=== PATIENT | female | born 1945 | race Caucasian/White ===

== ENCOUNTER 2019-01-03 01:47 | Inpatient (IN) ==
[2019-01-05 08:23] VITALS: BP 144/49
== END 2019-01-05 09:37 | disposition home or self-care (01) | DRG 310 ==
LOC: SUPCPDRO → ED 01:47 → ICU 05:42 → SUATTDRO 05:42 → 2N 01-04 03:57
PROVIDERS: ATTEND Internal Medicine

== ENCOUNTER 2019-03-26 12:46 | Observation (INO) ==
--- NOTE | 2019-03-26 13:44 | Diag Imaging Result Doc PS360 ---
CHEST-1 VIEW - 03/26/2019 INDICATION: cp COMPARISON: 01/03/2019 FINDINGS: There are some faint interstitial markings in the lung bases bilaterally suggesting some combination of pulmonary edema, fibrosis or bronchitis. Heart size is borderline enlarged. Stable sternotomy wires. No pneumothorax or pleural effusion. IMPRESSION: Nonspecific findings. Electronically signed by Camden Villarreal 03/26/2019 1:41 PM
[2019-03-26 13:58] LABS: BASO# 0.03 X1000 (0.0-0.2); BASO% 0.6 % (0.0-0.8); EOS# 0.28 X1000 (0.0-0.7); EOS% 5.5 % (0.0-10.0); HEMATOCRIT 34.9 % (37.0-47.0); HEMOGLOBIN 11.1 g/dL (12.0-16.0); LYMPH# 1.33 X1000 (1.2-3.4); LYMPH% 26.1 % (20.5-51.1); MCH 28.7 PG (27-31); MCHC 31.8 g/dL (33-37); MCV 90.2 FL (81-99); MONO# 0.85 X1000 (0.11-0.59); MONO% 16.7 % (1.7-9.3); MPV 10.1 FL (7.4-10.4); NEUT# 2.61 X1000 (1.4-6.5); NEUT% 51.1 % (42.2-75.2); PLT 305 X1000 (130-400); RBC 3.87 XMIL (4.2-5.4); RDW 13.5 % (11.5-14.5)
[2019-03-26 14:07] LABS: INR 1.09; PROTIME 14.2 Seconds (11.0-16.0); PTT 30.7 Seconds (22.3-41.8)
--- NOTE | 2019-03-26 14:11 | EKG Report ---
Test Performed on : 03/26/2019 12:52:18 PM Test Reason : cp Blood Pressure : / mmHG Vent. Rate : 061 BPM Atrial Rate : 061 BPM P-R Int : 138 ms QRS Dur : 078 ms QT Int : 446 ms P-R-T Axes : 055 050 086 degrees QTc Int : 448 ms Normal sinus rhythm. Minimal voltage criteria for LVH, may be normal variant Nonspecific T wave abnormality Abnormal ECG When compared with ECG of 05-JAN-2019 07:33, ST elevation now present in Inferior leads T wave inversion more evident in Lateral leads Unconfirmed Result
[2019-03-26 14:24] LABS: AGAP 13; ALKALINE PHOSPHATASE 67 U/L (32-104); BUN 23 mg/dL (8-22); CALCIUM 9.2 mg/dL (8.8-10.2); CHLORIDE 102 mmol/L (98-107); COSMO 281; CREATININE 0.6 mg/dL (0.5-0.9); ESTIMATED GFR > 60; GLUCOSE 92 mg/dL (70-104); GOT 24 U/L (10-30); GPT 21 U/L (10-36); POTASSIUM 3.9 mmol/L (3.5-5.1); SODIUM 139 mmol/L (136-145); TCO2 24 mmol/L (25-35); TOTAL BILIRUBIN 0.27 mg/dL (0.20-1.00)
[2019-03-26] MEDS ORDERED: NITROGLYCERIN TOP ONE (15:20)
--- NOTE | 2019-03-26 15:22 | PROVIDER DOCUMENTATION ---
This chart was entered by Jasmina Palencia Scribe, acting as scribe for Benedicto Nguyen MD. HPI-Chest Pain - General Chief Complaint: Chest Pain Stated Complaint: chest pain Time Seen by Provider: 03/26/19 13:20 Source: patient Allergies/Adverse Reactions: Patient Allergies Allergy/AdvReac Type Severity Reaction Status Date / Time codeine [Codeine] Allergy RASH Verified 01/03/19 03:00 epinephrine Allergy Unknown Verified 01/03/19 03:00 Penicillins Allergy RASH Verified 01/03/19 03:00 rofecoxib [From Vioxx] Allergy RASH Verified 01/03/19 03:00 [id number] Reductase Allergy DIZZINESS Verified 01/03/19 03:01 Inhibitor Home Medications: Home Medication List Medication Instructions Recorded Confirmed Last Taken Type Acetaminophen [Tylenol Extra 500 - 1,000 mg PO Q8H PRN PRN 05/20/15 01/03/19 09/26/17 08:00 History Strength] Apixaban [Eliquis] 5 mg PO BID 05/20/15 01/03/19 09/26/17 08:00 History Aspirin [Aspirin EC] 81 mg PO DAILY 05/20/15 01/03/19 09/26/17 08:00 History Biotin [Hard Nails] 5,000 mcg PO DAILY 09/29/17 01/03/19 09/26/17 08:00 History Ketoprofen, Micronized [Ketoprofen 100 gm TOP 4XDAY 09/29/17 01/03/19 09/26/17 08:00 History Micronized] Sotalol [Betapace] 80 mg PO BID@0500,1700 #60 tab 01/05/19 Unknown Rx - History of Present Illness-CP Nature of Presenting Problem: 74yof presents to ED by EMS cc cp that radiates across shoulders, tightness down right arm, neck, increased weight gain, blurry vision, fatigue and SOB that is worse with exertion, intermittently since Tuesday. Pt reports she took a Nitro and 325mg aspirin and got relief. Pt reports she was seen in 12/[address] Tomlinson did a stress test which showed a blockage so he put her on Sodilol and Eliquis. Pt denies N/V/D. Pt is followed by Dr. Lawrence/Program [facility]. Pt has hx of CABG/AFIB/GERD. Location: reports: substernal Chest Pain Radiation: reports: arms (left), neck, shoulders, back Quality of Pain: reports: pressure, tightness Severity in ED: mild Onset/Duration: 4 days ago Timing: still present, intermittent Context/Activities at Onset: reports: light activity Modifying Factors: improves with: other medication (nitro). worse with: exercise, movement Associated Symptoms: reports: back pain, fatigue, shortness of breath, weakness Nitro Today/Relief: no nitro taken today Aspirin Treatment Today: 81 mg x 1, provided at home Prior Chest Pain/Cardiac Workup: reports: angina, cardiac cath, heart attack, stress test Similar Symptoms Previously?: Yes Recently Seen Here or By Another Healthcare Provider: Yes (seen in ED 12/2018) Review of Systems - Adult - REVIEW OF SYSTEMS - ADULT Constitutional: reports: see HPI, fatique, weight gain. denies: chills, fever Eyes: reports: see HPI, blurred vision Ears, Nose, Mouth & Throat: reports: no symptoms reported Cardiovascular: reports: see HPI, chest pain Respiratory: reports: see HPI, shortness of breath. denies: cough Gastrointestinal: reports: see HPI. denies: diarrhea, nausea, vomiting Genitourinary: reports: no symptoms reported Musculoskeletal: reports: no symptoms reported Integumentary: reports: no symptoms reported Neurological: reports: no symptoms reported Psychiatric: reports: no symptoms reported Endocrine: reports: no symptoms reported Hematologic/Lymphatic: reports: no symptoms reported Allergic/Immunologic: reports: no symptoms reported All Other Systems: Reviewed and Negative Past History - Adult - PAST MEDICAL HISTORY-ADULT Review of Records: reports: Old Records Reviewed, Nursing Assessment Review, Medications Reviewed, Social history reviewed & non-contributory. Major Childhood Illnesses: reports: denies history Cardiovascular: reports: HTN, heart valve problem Respiratory: reports: denies history Gastrointestinal: reports: denies history Obstetrical/Gynecological: reports: denies history Genitourinary: reports: denies history Musculoskeletal: reports: denies history Neurological: reports: denies history Endocrine/Immune: reports: denies history Other Conditions: reports: denies history - PRIOR SURGERIES/PROCEDURES Surgical/Procedure History: reports: BTL, hernia repair, other (heart valve) - IMMUNIZATION STATUS Childhood Immunizations: See Nurse Assessment Flu Vaccine: See Nurse Assessment - FAMILY HISTORY Family History: reviewed, not pertinent Physical Exam-General - PHYSICAL EXAM-ADULT Initial Vital Signs Reviewed: Yes - CONSTITUTIONAL General Appearance: appears well, alert, no apparent distress. negative: a nxious, combative - EYES Eyes: PERRL/EOMI, pink conjunctivae. negative: photophobia - HEAD, EARS, NOSE, MOUTH & THROAT HENMT: normocephalic/atraumatic, moist mucous membranes. negative: angioedema - NECK Neck: supple, normal inspection - RESPIRATORY Respiratory: chest non-tender, lungs clear, normal breath sounds. negative: rhonchi, stridor - CARDIOVASCULAR Cardiovascular: normal peripheral pulses, regular rate, rhythm, no edema. negative: bradycardia, tachycardia - GASTROINTESTINAL (ABDOMEN) Abdominal Exam: normal bowel sounds, non tender, soft. negative: rigid, rebound - MUSCULOSKELETAL Back Exam: normal inspection, no CVA tenderness, no vertebral tenderness Extremity: normal inspection, normal capillary refill. negative: deformity - SKIN Integumentary: normal color. negative: diaphoresis, jaundice, rash - PSYCHIATRIC Psych/Mental Status: normal mood/affect, oriented x 3. negative: anxious, disheveled - HEART Score HEART Score: History: Highly Suspicious HEART Score: ECG: Non-Specific Repolarization Disturbance/LBBB/PM HEART Score: Age: > or = 65 Years HEART Score: Risk Factors for Atherosclerotic Disease: > or = 3 Risk Factors or History of Atherosclerotic Disease HEART Score: Troponin: < or = Normal Limit Total HEART Score:: 7 Progress - PLAN OF CARE/RESULTS Progress/Plan/Lab Results: Vital Signs - 8 hr 03/26/19 13:00 03/26/19 14:30 03/26/19 15:17 Temperature 98.1 F Pulse Rate 61 57 L 57 L Respiratory Rate 19 19 22 Blood Pressure 180/68 171/71 181/68 O2 Sat by Pulse Oximetry 98 99 99 Laboratory Results - last 24 hr 03/26/19 03/26/19 03/26/19 13:41 13:41 13:41 WBC 5.10 RBC 3.87 L Hgb 11.1 L Hct 34.9 L MCV 90.2 MCH 28.7 MCHC 31.8 L RDW Std Deviation 13.5 Plt Count 305 MPV 10.1 Immature Gran % (Auto) 0.0 Neut % (Auto) 51.1 Lymph % (Auto) 26.1 Trego % (Auto) 16.7 H Eos % (Auto) 5.5 Baso % (Auto) 0.6 Immature Gran # (Auto) 0.00 Neut # (Auto) 2.61 Lymph # (Auto) 1.33 Trego # (Auto) 0.85 H Eos # (Auto) 0.28 Baso # (Auto) 0.03 PT INR PTT (Actin FS) Sodium 139 Potassium 3.9 Chloride 102 Carbon Dioxide 24 L Anion Gap 13 BUN 23 H Creatinine 0.6 Estimated GFR/1.73 m2 > 60 BUN/Creatinine Ratio 38 Glucose 92 Calculated Osmolality 281 Calcium 9.2 Total Bilirubin 0.27 AST 24 ALT 21 Alkaline Phosphatase 67 Troponin T High Sens [id number]-Y-Swsudnqmpwy Pept 509 H Total Protein 6.0 L Albumin 4.0 Globulin 2.0 Albumin/Globulin Ratio 2.0 03/26/19 03/26/19 13:41 13:41 WBC RBC Hgb Hct MCV MCH MCHC RDW Std Deviation Plt Count MPV Immature Gran % (Auto) Neut % (Auto) Lymph % (Auto) Trego % (Auto) Eos % (Auto) Baso % (Auto) Immature Gran # (Auto) Neut # (Auto) Lymph # (Auto) Trego # (Auto) Eos # (Auto) Baso # (Auto) PT 14.2 INR 1.09 PTT (Actin FS) 30.7 Sodium Potassium Chloride Carbon Dioxide Anion Gap BUN Creatinine Estimated GFR/1.73 m2 BUN/Creatinine Ratio Glucose Calculated Osmolality Calcium Total Bilirubin AST ALT Alkaline Phosphatase Troponin T High Sens 13 Kon-E-Vjvfeiidggs Pept Total Protein Albumin Globulin Albumin/Globulin Ratio Orders Category Date Time Status cxr [CHEST-1 VIEW] [RAD] Stat Exams 03/26/19 13:20 Completed CBC WITH DIFF [HEME] Stat Lab 03/26/19 13:41 Completed COMPREHENSIVE METABOLIC PANEL [CHEM] Stat Lab 03/26/19 13:41 Completed PRO B-NATRIURETIC PEPTIDE Stat Lab 03/26/19 13:41 Completed PROTIME WITH INR [COAG] Stat Lab 03/26/19 13:41 Completed PTT [COAG] Stat Lab 03/26/19 13:41 Completed TROPONIN T HIGH SENSITIVITY Stat Lab 03/26/19 13:41 Completed TROPONIN T HIGH SENSITIVITY Stat Lab 03/26/19 15:25 Ordered Nitroglycerin Med 03/26/19 15:20 Discontinued 1 inch TOP NOW ONE EKG [EKG] Stat Ther 03/26/19 13:20 Draft Result Diagrams: 03/26/19 13:41 03/26/19 13:41 - EKG 1 Time of EKG reading by physician:: 12:52 EKG Read and Signed by:: Benedicto Nguyen EKG Interpretation (*Must complete 3 of following elements*): Abnormal (non specific T wave abnormality) Rate: 61 Rhythm: NSR QRS: LVH FL Interval: normal - XRAY 1 XRAY: Bilateral XRAY Study: Chest Impression: See EMR Report ( IMPRESSION: Nonspecific findings. Electronically signed by Camden Villarreal 03/26/2019 1:41 PM) - CONSULTS/PCP/HOSPITALIST Notification #1 *Consult/PCP/Hospitalist*: Ann/TARUN Time Discussed: 15:19 Consult Disposition: Will see in ED, Admit (Suha) #2 Consult: Dr Chinchilla Time Discussed: 15:26 Consult Disposition: Admit, other (agreed with admit and will consult.) Departure - Departure Date of Disposition Decision: 03/26/19 Time of Disposition Decision: 15:19 DIAGNOSIS: Chest pain, Exertional shortness of breath, CHF exacerbation Disposition: ADMITTED INPATIENT 09 Certified Medical Emergency: Emergent Condition: Stable Additional Instructions: ED Follow Up Instructions: You have been treated by a care provider in the Emergency Department. These instructions are being provided to you so you can have an understanding of how to care for yourself upon discharge. Upon discharge from the Emergency Departmen t, you are responsible for making arrangements for follow-up care by a physician of your choice. Take all prescribed medications as directed. Return to the Emergency Department immediately for any new or worsening symptoms. You may call the Physician Referral phone number at [phone] to obtain a list of Physicians who are taking new patients. Referrals and Follow-Ups: Atilio Del Castillo MD [Primary Care Provider] - - Critical Care Note This patient required my direct & personal management of CC.: No Attestation - Physician/ BREANNE Attestation Patient care was provided by Advanced Practice Provider:: No The physician spent face to face time with patient:: Yes Advanced Practice Provider documentation review:: Supervising physician onsite and consulted in the evaluation and care of this patient. The physician did have a face to face encounter with the patient. This chart was documented by the indicated scribe, (Jasmina Palencia, Esdras) and accurately reflects the services I performed and decisions made by me, Benedicto Nguyen MD, as attested by the provider's signature.
[2019-03-26] MEDS ORDERED: NITROGLYCERIN SL PRN (17:23)
[2019-03-26] MEDS ORDERED: ZOFRAN IV PRN (17:23)
[2019-03-26] MEDS ORDERED: TYLENOL PO PRN (17:23)
[2019-03-26] MEDS ORDERED: LASIX IV ONE (18:29)
[2019-03-26] MEDS ORDERED: MORPHINE IV PRN (18:30)
--- NOTE | 2019-03-26 19:40 | HISTORY AND PHYSICAL ---
PRIMARY CARE PHYSICIAN: Dr. Atilio Del Castillo. CHIEF COMPLAINT: Chest pain radiating across her shoulders, tightness down her left arm and neck, fatigue and shortness of breath that is worse with exertion that has been present on and off for the past week and progressively worsened. HISTORY OF PRESENTING ILLNESS: This is a 74-year-old female who presents to [facility] via EMS with complaints of chest pain that radiated across her shoulders and down her left arm and neck with some blurry vision fatigue and shortness of breath that became worse with exertion. Over the past couple of weeks it has progressively worsened. States that she was in the hospital in December and was diagnosed with atrial fibrillation and started on sotalol and that she feels her symptoms have progressively worsened since beginning the sotalol. She is followed by shirt creaser in [place], Dr. Lawrence. Her workup today showed a blood pressure of 180/68. Her laboratory data showed a troponin T high- sensitivity of 13. ProBNP was 509. She has had a history of a CABG and her heart score is a 7. So, she will be admitted for further evaluation and treatment. PAST MEDICAL HISTORY: Atrial fibrillation, hypertension, hyperlipidemia, and coronary artery disease. PAST SURGICAL HISTORY: Of coronary bypass, hernia repair, and hysterectomy. FAMILY HISTORY: Positive for coronary artery disease in her father. SOCIAL HISTORY: She currently lives with family. Denies any tobacco, alcohol or illicit drug use. ALLERGIES: To codeine, epinephrine, penicillin, Vioxx, and statins. HOME MEDICATIONS: A current list will need to be obtained, reconciled, reviewed and restarted as appropriate. We will place an order for nursing to update and confirm home medications. LABORATORY DATA: Showed a white blood cell count of 5.10, hemoglobin 11.1, hematocrit 34.9, platelets 305,000. PT and INR of 14.2 and 1.09. Sodium 139, potassium 3.9, chloride 102, CO2 of 24, BUN of 23, creatinine 0.6, glucose of 92. Troponin T high-sensitivity was 13. ProBNP of 509. Chest x-ray showed nonspecific findings of a combination of pulmonary edema, fibrosis or bronchitis. EKG showed normal sinus rhythm at 61. REVIEW OF SYSTEMS: She denied any fever, chills. She did have some blurred vision, dizziness, fatigue, shortness of breath that worsened with exertion, chest pain that radiated down her arm and across her shoulders and neck. Denied any abdominal pain, constipation, diarrhea, burning or hurting with urination. PHYSICAL EXAMINATION: On arrival, she had a temperature of 98.1 degrees, pulse 61, respirations 19, blood pressure 180/68, saturating 98% on room air. GENERAL: This is a 74-year-old female lying in the bed and answers questions appropriately. HEENT: Normocephalic, atraumatic. Normal ENT inspection. Oropharynx and nares are clear. EYES: Pupils are equal, round, reactive to light and accommodation. Extraocular movements are intact. NECK: Normal inspection. Normal range of motion. LUNGS: Clear to auscultation bilaterally with equal lung expansion and chest wall movement. HEART: Regular rate and rhythm. No murmurs, rubs, or gallops. ABDOMEN: Soft, nontender, nondistended. Bowel sounds are present x4 quadrants. MUSCULOSKELETAL: She had 5/5 strength x4 extremities. NEUROLOGICAL: The cranial nerves 2-12 appear grossly intact. ASSESSMENT: 1. Chest pain. 2. Dyspnea. 3. Fatigue. 4. Coronary artery disease, history of, with history of atrial fibrillation. PLAN: She will be admitted to the medical unit, placed on telemetry. We will do serial cardiac enzymes. Update and confirm home medications. Consult Cardiology for further Cardiology testing. We will place on Zofran 4 mg IV q.4 hours p.r.n. for nausea and vomiting. Healthy heart diet. Recheck CBC BMP in the a.m. Further orders after seen by attending. Dictated by JUSTIN Sprague for Dionne Borden MD cc: JUSTIN Sprague MD David Francis, MD
[2019-03-26] MEDS: ELIQUIS PO SCH (21:12)
[2019-03-26] MEDS: SINGULAIR PO SCH (21:13)
[2019-03-26] MEDS: MIRAPEX PO SCH (21:13)
[2019-03-26] MEDS: PEPCID PO SCH (22:10)
[2019-03-27] MEDS: ELIQUIS PO SCH ×2 (06:27→18:38)
[2019-03-27] MEDS ORDERED: PRILOSEC PO SCH (07:00)
--- NOTE | 2019-03-27 07:27 | EKG Report ---
Test Performed on : 03/27/2019 07:03:55 AM Test Reason : chest pain Blood Pressure : / mmHG Vent. Rate : 055 BPM Atrial Rate : 055 BPM P-R Int : 158 ms QRS Dur : 090 ms QT Int : 460 ms P-R-T Axes : 056 059 098 degrees QTc Int : 440 ms Sinus bradycardia. Left ventricular hypertrophy with repolarization abnormality Abnormal ECG When compared with ECG of 26-MAR-2019 12:52, (Unconfirmed) ST no longer elevated in Inferior leads Confirmed by Georgiana Claros MD ([id number]) on 03/27/2019 1:06:13 PM
[2019-03-27 08:42] LABS: BASO# 0.03 X1000 (0.0-0.2); BASO% 0.8 % (0.0-0.8); EOS# 0.31 X1000 (0.0-0.7); EOS% 7.8 % (0.0-10.0); HEMATOCRIT 34.5 % (37.0-47.0); HEMOGLOBIN 11.1 g/dL (12.0-16.0); LYMPH# 1.02 X1000 (1.2-3.4); LYMPH% 25.6 % (20.5-51.1); MCH 29.2 PG (27-31); MCHC 32.2 g/dL (33-37); MCV 90.8 FL (81-99); MONO# 0.71 X1000 (0.11-0.59); MONO% 17.8 % (1.7-9.3); MPV 10.4 FL (7.4-10.4); NEUT# 1.92 X1000 (1.4-6.5); PLT 291 X1000 (130-400); RDW 13.8 % (11.5-14.5); WBC 3.99 X1000 (4.8-10.8)
[2019-03-27] MEDS ORDERED: LASIX IV SCH (09:00)
[2019-03-27] MEDS ORDERED: ASPIRIN PO SCH ×2 (09:00)
--- NOTE | 2019-03-27 09:00 | Diag Imaging Result Doc PS360 ---
CHEST-2 VIEWS - 03/27/2019 INDICATION: dyspnea COMPARISON: 03/26/2019 FINDINGS: There is some faint nonspecific infiltrate or atelectasis in the left lower lobe. There is also a trace left pleural effusion. The right lung is grossly clear. Heart size remains top normal. IMPRESSION: Nonspecific infiltrate or atelectasis in the left lower lobe. Trace left pleural effusion. Electronically signed by Camden Villarreal 03/27/2019 8:58 AM
[2019-03-27 09:04] LABS: CHOLESTEROL 336 mg/dL (0-200); HDL 53 mg/dL (45-65); LDL 257 mg/dL; TRIGLYCERIDES 132 mg/dL (35-135); VLDL 26 mg/dL
[2019-03-27 09:15] LABS: AGAP 12; BUN 17 mg/dL (8-22); CALCIUM 9.2 mg/dL (8.8-10.2); CHLORIDE 103 mmol/L (98-107); COSMO 284; CREATININE 0.5 mg/dL (0.5-0.9); ESTIMATED GFR > 60; GLUCOSE 90 mg/dL (70-104); IRON SATURATION 16 %; POTASSIUM 3.8 mmol/L (3.5-5.1); SODIUM 142 mmol/L (136-145); TCO2 27 mmol/L (25-35); TIBC 366 ug/dL; TOTAL IRON 57 ug/dL (49-151); UNBOUND IRON 309 ug/dL (112-346)
[2019-03-27 10:07] LABS: FERRITIN 19 ng/mL (13-150)
[2019-03-27] MEDS ORDERED: LEXISCAN ONE (10:34)
[2019-03-27] MEDS ORDERED: AMINOPHYLLINE ONE (11:03)
[2019-03-27] MEDS: VITAMIN D PO SCH ×2 (12:45→13:03)
--- NOTE | 2019-03-27 14:07 | Diag Imaging Result Document ---
PROCEDURE NAME: MYOCARDIAL PERF SCAN, STR/REST - 03/27/2019 SUMMARY: The patient was administered 12.6 mCi of technetium-99m sestamibi, after which resting cardiac images were obtained. The patient was subsequently stressed using a walking Lexiscan protocol. The patient was administered Lexiscan 0.4 mg intravenously, after which the heart rate went from 67 beats per minute to 98 beats per minute and the blood pressure went from 150/71 to 142/78. With Lexiscan, the patient denied chest discomfort. Following the administration of Lexiscan, the patient was administered 33.6 mCi of technetium 99-m sestamibi, after which the patient subsequently was administered aminophylline 125 mg intravenously. The patient subsequently had gated stress cardiac images obtained. Baseline ECG demonstrated normal sinus rhythm and left ventricular hypertrophy with repolarization abnormality. With Lexiscan, baseline T-wave abnormality became more prominent in the inferior and lateral precordial leads, and then returned to baseline in recovery. SPECT images were reconstructed in the short, horizontal long, and vertical long axes. Review of these images demonstrated a small to medium-sized area of mildly diminished activity in the anteroapical region of the left ventricle on stress images, which appears similar on resting images. No significant reversibility is evident. Gated images demonstrate a calculated left ventricular ejection fraction of 75% with symmetrical wall motion/thickening. CONCLUSIONS: 1. Adequate response to Lexiscan. 2. Clinically negative for chest pain. 3. Electrocardiographic changes observed are nonspecific. 4. Lexiscan sestamibi images demonstrate fixed, mildly diminished activity in the anteroapical region of the left ventricle of small to medium-size with corresponding preserved regional wall motion, probably due to soft tissue attenuation. There is no convincing scintigraphic evidence of inducible myocardial ischemia. Normal left ventricular systolic function demonstrated. cc: MD Rosalie Benton PA
[2019-03-27 16:54] VITALS: BP 125/43
[2019-03-27] MEDS: SINGULAIR PO SCH (18:39)
[2019-03-27] MEDS: MIRAPEX PO SCH (18:39)
[2019-03-27] MEDS: PEPCID PO SCH (18:39)
--- NOTE | 2019-03-27 21:59 | CARDIOLOGY CONSULTATION ---
DATE: 03/27/2019 REQUESTING PHYSICIAN: Hospitalist service REASON FOR CONSULTATION: Chest pain, weakness, shortness of breath. HISTORY: Ms. Teran is a 74-year-old female who presented to the emergency room on March 26 at about 1:20 p.m. complaining of recurrent sensation of fatigue and swelling of her legs. She also had suffered an episode of left arm pain and chest discomfort 3 days prior to admission that resolved with nitroglycerin and aspirin. Then, on the day of admission, she noted episode of discomfort in the upper back between shoulder blades and arms that she did not like. She got worried about it and decided to come in for evaluation. In the ER they obtained an EKG that shows sinus rhythm with a heart rate of 61 beats per minute with nonspecific T waves. ProBNP was 509 mcg/mL. The upper normal is 353 mcg/mL for her age. A chest x-ray was done and has been reported as indicating no specific findings with some faint interstitial markings in the lung bases bilaterally. She said that she had stopped taking sotalol like a couple of days prior to coming to the ER,because she felt that he was affecting her too much. The patient is not having any more pain at this time. Her ankles are not swollen. PAST HISTORY: Positive for coronary heart disease. About 4 5 years ago, she underwent coronary bypass procedure including a mammary graft to LAD and vein graft to marginal branch. Then, she underwent heart catheterization following up on her condition by Dr. Michael Lawrence and that revealed that her bypasses were patent. There was no significant additional stenosis. Right coronary artery has some mild to moderate 40% stenosis in the proximal portion. The patient presented to the hospital recently on January 03 with chest pains and at that time she was found to have paroxysmal atrial fibrillation. The patient at that time was placed on sotalol 80 mg twice a day, and she says that since then she has not been doing well. She also said that she had been drinking grapefruit juice, which apparently is not advisable when you take beta blockers like sotalol. At any rate, she has stopped taking it about 3 days prior to admission. The patient has also history of aortic stenosis and underwent aortic valve replacement at the time of her open-heart surgery. She has acid reflux. She has peptic ulcer disease. SURGICAL HISTORY: Coronary bypass surgery with aortic valve replacement in 2016. She has had hernia repair and hysterectomy. SOCIAL HISTORY: She is , retired, lives at home. She has children. FAMILY HISTORY: Father had coronary heart disease. ALLERGIES: Multiple drugs including codeine, epinephrine, penicillin, vials, statins, etc. REVIEW OF SYSTEMS: Other than what I have already reported, nothing significant. Her symptoms apparently have been made worse by the sotalol. PHYSICAL EXAMINATION: Vital signs: Blood pressure right now is 124/42, temperature 97.9 degrees, pulse 73, respirations 24. General: Patient is awake, alert, oriented, in no distress. HEENT: Unremarkable. Chest: Clear to auscultation and percussion. Heart: Regular rhythm with a systolic murmur 2 to 3/6 in intensity over the aortic area. Abdomen: Nontender. Extremities: Show good pulses. No edema. Neurologic: Nonfocal. Moves 4 extremities. BLOOD WORK: Sodium 142, potassium 2.8, BUN 17, creatinine 0.5. Hemoglobin 11.1, hematocrit 34.5. IMPRESSION: 1. Patient who presents with chest pain. This is possibly angina pectoris. She does have coronary heart disease. s/p CABG. 2. Paroxysmal atrial fibrillation with poor tolerance to sotalol. 3. Hyperlipidemia, which has not been treated with statins. As a matter of fact, today her lipid panel shows the following: Total cholesterol 236 mg/dL. HDL 53 mg/dL, LDL 257 mg/dL. 4. History of hypertension. 5. History of intolerance to multiple medications. 6. Iron deficiency. RECOMMENDATION: At this time, we have already reviewed the results of the echocardiogram that shows normal LV function with some increased gradient across the aortic valve, however, nothing serious. Her stress test shows no evidence of inducible ischemia. Some fixed defect is noted. At this time, I would suggest to decrease her doses of sotalol to 40 mg twice a day to prevent recurrence of the paroxysmal atrial fibrillation. She may need to meet with Dr. Lawrence again in the next few days to discuss whether or not to pursue additional intervention to manage her atrial fibrillation or just continue with the same drugs at a lower dose. Cardiac-diaz, I think she is okay to be discharged. In addition, we have checked an iron profile and her iron saturation is somewhat low at 16%. That may need to be corrected or investigated by her primary care physician. Please make him aware of that. cc: Russell Cool MD MTDD
--- NOTE | 2019-03-27 23:26 | ECHO REPORT ---
ORDER DATE: 03/27/2019 MEASUREMENTS: Septal thickness 1.1, left ventricular internal diameter in diastole 4.8, posterior wall thickness 1.1, left ventricular internal diameter in systole 2.8, aortic root 2.8, left atrium 4.8. SUMMARY: 1. Fair quality study. 2. Aortic valve is not well imaged demonstrates sclerotic changes. The peak gradient across aortic valve is 57 mmHg with a mean gradient 34 mmHg. The calculated aortic valve area by Doppler is 1.0 to 1.1 cm2 suggesting moderate to severe aortic stenosis. There is trace aortic regurgitation. Mitral annular calcification is demonstrated. There is mild mitral regurgitation. Tricuspid valve was without evidence of structural abnormality while pulmonic valve is not well demonstrated. There is moderate tricuspid regurgitation. The estimated systolic PA pressure by Doppler is 40 to 45 mmHg suggesting mild pulmonary hypertension. Aortic root is normal in size. 3. Normal left ventricular chamber size with borderline concentric left hypertrophy is demonstrated. Estimated left ventricular ejection fraction appears to be at least 70%. No regional wall motion abnormality can be appreciated. Doppler suggests grade 1 left ventricular diastolic dysfunction. Left atrium is moderately enlarged. Right atrium and right ventricle are normal in size with preserved right ventricular systolic function. 4. No pericardial effusion. 5. Appearance of inferior vena cava suggests normal central venous pressure. CONCLUSIONS: 1. Moderate to severe aortic stenosis with very mild aortic regurgitation. 2. Mild mitral regurgitation. 3. Moderate tricuspid regurgitation with mild pulmonary hypertension by Doppler. 4. Borderline concentric left hypertrophy with estimated left ejection fraction at least 70%. 5. Grade 1 left ventricular diastolic dysfunction. 6. Moderate left atrial enlargement. cc: MD Dionne Benton MD
--- NOTE | 2019-03-28 19:30 | DISCHARGE SUMMARY ---
ADMISSION DATE: 03/26/2019 DISCHARGE DATE: 03/27/2019 DISCHARGE DISPOSITION: Home. DISCHARGE CONDITION: Hemodynamically stable. The patient denies any chest pain, shortness of breath, nausea, vomiting, or body ache. DISCHARGE DIAGNOSES: 1. Atypical chest discomfort with dyspnea and fatigue. 2. History of coronary artery disease status post coronary artery bypass graft in 2016. 3. History of paroxysmal atrial fibrillation. 4. Essential hypertension. 5. History of aortic stenosis status post bioprosthetic aortic valve in 2016. 6. History of multiple allergies. DISCHARGE MEDICATIONS: 1. Pramipexole 0.25 mg at nighttime. 2. Montelukast 10 mg at nighttime. 3. Aspirin 81 mg daily. 4. Apixaban 5 mg b.i.d. 5. Famotidine 40 mg in the morning time. 6. Biotin 10,000 mcg daily. 7. Ketoprofen 100 g topical 4 times a day. 8. Tylenol Extra Strength 500 to 1000 mg every 8 hours as needed. 9. Sotalol 40 mg b.i.d. Her dose was decreased from 80 mg b.i.d. to 40 mg b.i.d. as the patient was concerned that her symptoms of chest discomfort and fatigue were related to sotalol. She was extensively counseled about calling and following up with her routine mask layout designer at [facility] and have a detailed discussion about adjusting sotalol dose as well as probably starting her on other antiarrhythmic medication. VITALS AT THE TIME OF DISCHARGE: Temperature 98.1 degrees, pulse 79, respiratory rate 20, blood pressure 125/43, saturating 97% room air. PHYSICAL EXAMINATION AT THE TIME OF DISCHARGE: HEENT: Oral cavity is moist. Respiratory: Air entry bilaterally equal. No wheeze, rhonchi, or crackles. Cardiovascular: S1, S2 normal. Heart rate is in normal sinus rhythm. No murmur or gallop. Abdomen: Soft, nontender. Extremities: No lower extremity edema. Neurological: Ms. Teran was alert and oriented x3. LABORATORY DATA AT THE TIME OF DISCHARGE: WBC 3.9, hemoglobin 11.1, platelets 291,000, BUN 17, creatinine 0.5. She did have hypercholesterolemia with cholesterol of 336 and LDL of 257. She was previously advised to have follow up with her regular mask layout designer about it. MICROBIOLOGY: No microbiological data. IMAGING: During hospital admission, chest x-ray on March 26, 2019 did not have any acute cardiopulmonary process. Myocardial perfusion scan had adequate response to Lexiscan, clinically negative for chest pain, electrocardiographic changes observed were nonspecific. There was fixed mildly diminished activity in the anteroapical region of the left ventricle of small to medium size with corresponding preserved regional wall motion, probably due to soft tissue attenuation. There was no convincing scintigraphic evidence of inducible myocardial ischemia. She had normal left ventricular systolic function. ELECTROCARDIOGRAM: On March 26, 2019 had a normal sinus rhythm. Minimal voltage criteria for left ventricular hypertrophy. Nonspecific T-wave abdominal abnormality. HOSPITAL COURSE SUMMARY: Ms. Teran is a 74-year-old lady who was discharged from [facility] in December 2018 when she was admitted for atrial fibrillation with rapid ventricular rate and was started on sotalol at the time of discharge, came in with chief complaints of chest pain radiating across her shoulders, tightness down her left arm and neck, fatigue, and shortness of breath versus exertion that has been present on and off since about 1 or 2 weeks. In the emergency room, she was found to have a temperature of 98.1 degrees, pulse of 61 per minute, blood pressure of 180/68, and oxygen saturation of 98% on room air. Her labs had suggested a proBNP of 500 and troponins were less than 20. She was admitted for further management. Apparently, patient had slowly stopped taking her sotalol 1 week ago since she thought that her symptoms were brought about by sotalol. Considering her symptoms and history of coronary artery disease, she underwent myocardial nuclear perfusion scan which did not detect any inducible ischemia, and her chest pain was thought to be noncardiac in origin. At the time of discharge, her symptoms had resolved. She was advised to decrease her sotalol from 80 mg to 40 mg twice a day; however, patient was still concerned so she was advised about following up with her routine mask layout designer, Dr. Lawrence and have a further discussion about her long-term antiarrhythmic treatment management for atrial fibrillation. At the time of discharge, adequate time was spent in explaining to the patient and her son at bedside about atrial fibrillation as well as need for paroxysmal nature of her atrial fibrillation. All of her questions were answered. Twenty minutes were spent in discharging this patient. cc: Guillermo Zhang MD
== END 2019-03-27 18:44 | disposition home or self-care (01) ==
LOC: SUPCPDRO → 3N 12:46 → ED 12:46 → SUATTDRO 22:40
PROVIDERS: ATTEND Internal Medicine